=== PATIENT | female | born 1995 | race American Indian/Alaskan Native ===

== ENCOUNTER 2024-03-10 00:11 | Observation (INO) | payer MEDICAID ==
[2024-03-10] MEDS ORDERED: Ondansetron 4 MG/2 ML SDV IVPUSH PRN (00:38)
[2024-03-10] MEDS ORDERED: Carboprost Tromethamine 250 MCG/1 ML Amp IM PRN (00:38)
[2024-03-10] MEDS ORDERED: Lactated Ringers 1,000 ML IV ONE (00:38)
[2024-03-10] MEDS ORDERED: Acetaminophen 325 MG Tab PO PRN (00:38)
[2024-03-10] MEDS ORDERED: Tranexamic Acid 1,000 MG in Sodium Chloride 0.9% 100 ML IV PRN (00:38)
[2024-03-10] MEDS ORDERED: Misoprostol 400 MCG (4 X 100 MCG TAB) RECTAL PRN (00:38)
[2024-03-10] MEDS ORDERED: Lidocaine 1% 30 ML SDV INJECT ONE (00:38)
[2024-03-10] MEDS ORDERED: Sodium Chloride 0.9% 10 ML Syringe FLUSH PRN (00:38)
[2024-03-10] MEDS ORDERED: Methylergonovine 0.2 MG/1 ML Amp IM PRN (00:38)
[2024-03-10 00:57] LABS: HEMATOCRIT 32.9 % (37.0-47.0); HEMOGLOBIN 10.8 g/dL (12.0-16.0); MEAN CORPUSCULAR HEMOGLOBIN 28.9 pg (27.0-34.0); MEAN CORPUSCULAR HGB CONC 32.8 g/dL (33.0-35.0); RED BLOOD CELL COUNT 3.74 10^6/uL (4.2-5.4); WHITE BLOOD CELL COUNT,WBC 7.7 10^3/uL (5.0-10.0)
[2024-03-10] MEDS: Misoprostol 50 MCG (1/2 of 100 MCG) Tab VAG ONE (01:10)
[2024-03-10] MEDS: Misoprostol 25 MCG (1/4 of 100 MCG) Tab VAG PRN (09:14)
[2024-03-11] MEDS ORDERED: Misoprostol 50 MCG (1/2 of 100 MCG) Tab VAG PRN (00:14)
[2024-03-11] MEDS: Misoprostol 100 MCG Tab PO PRN (00:22)
[2024-03-11] MEDS: Lactated Ringers 1,000 ML IV SCH (04:33)
[2024-03-11] MEDS: Oxytocin/Normal Saline 30 UNIT/500 ML BAG IV SCH (04:34)
[2024-03-11] MEDS: fentaNYL 100 MCG/2 ML SDV IVPUSH PRN (16:00)
[2024-03-11] MEDS: hydrOXYzine HCl 25 MG Tab PO ONE (19:57)
== END 2024-03-11 20:05 | disposition home or self-care (01) ==
LOC: DL.OB 00:11 → UNDOADMOB 00:11 → DL.OB 00:38 → UNDODISOB 03-11 20:05
PROVIDERS: ADMIT Family Medicine; ATTEND Family Medicine
DX: O09.893 Supervision of other high risk pregnancies, third trimester (principal); O99.013 Anemia complicating pregnancy, third trimester; O99.810 Abnormal glucose complicating pregnancy; O26.893 Other specified pregnancy related conditions, third trimester; Z67.91 Unspecified blood type, Rh negative; Z28.39 Other underimmunization status
CPT/HCPCS: 36415; 85027; A9270-GY; J2590; J3010; J7120